=== PATIENT | male | born 1955 | race American Indian/Alaskan Native ===

== ENCOUNTER 2017-01-14 12:57 | Observation (INO) | payer BC, OTHER ==
[2017-01-14 13:10] VITALS: BMI 22.8
[2017-01-14] MEDS ORDERED: EnalaprilAT 1.25 mg/ml Inj IVP STA (13:41)
--- NOTE | 2017-01-14 13:46 | ED PDOC ---
Arrival/HPI - General Chief Complaint: High Blood Pressure Time Seen by Provider: 01/14/17 13:34 Historian: Patient, Spouse - History of Present Illness Time/Duration: Prior to Arrival Symptom Onset: Sudden Symptom Course: Unchanged Severity Level: Severe Activities at Onset: Rest Associated Symptoms (Text): 01/14/17 13:43 Patient was seen this morning at clinic by Dr. Hu and sent to the emergency department for evaluation and treatment and admission by the hospitalist. His blood pressure was 250/140. He was treated with bisystolic 10 mg. He denies chest pain palpitations or dyspnea. No headache dizziness or lightheadedness. No abdominal pain nausea or vomiting. He has stopped all of his diabetic and hypertensive medications. Past Medical History - Cardiac Hx Hypertension: Yes - Endocrine/Metabolic Hx Diabetes Mellitus Type 2: Yes - Psychiatric Hx Substance Use: No Family/Social History - Physician Review Nursing Documentation Reviewed: Yes Family/Social History: Unknown Family HX Smoking Status: Never Smoked Hx Alcohol Use: Yes Frequency of alcohol use: Socially Hx Substance Use: No Allergies/Home Meds Allergies/Adverse Reactions: Allergies No Known Allergies Allergy (Verified 01/14/17 13:10) Home Medications: Home Meds Medication Instructions Recorded Confirmed Amlodipine Bes/Olmesartan Med 1 tab PO DAILY 06/13/15 01/14/17 [Brittny 10 mg-40 mg] SITagliptin [Januvia] 25 mg PO BID 01/14/17 01/14/17 Review of Systems - Physician Review All systems were reviewed & negative as marked: Yes - Review of Systems Constitutional: Normal Respiratory: Normal Cardiovascular: Normal Gastrointestinal: Normal Genitourinary Male: Normal Skin: Normal Neurological: Normal Physical Exam Vital Signs Temp Pulse Resp BP Pulse Ox 01/14/17 14:21 197/114 H 01/14/17 13:05 99.1 F 94 H 18 213/100 H 98 Temperature: Afebrile Blood Pressure: Hypertensive Pulse: Regular Respiratory Rate: Normal Appearance: Positive for: Well-Appearing, Non-Toxic, Comfortable Pain Distress: None Mental Status: Positive for: Alert and Oriented X 3 - Systems Exam Head: Present: Atraumatic, Normocephalic Pupils: Present: PERRL Extroacular Muscles: Present: EOMI Conjunctiva: Present: Normal Mouth: Present: Moist Mucous Membranes Pharnyx: No: ERYTHEMA, EXUDATE, TONSILS ENLARGED Neck: Present: Normal Range of Motion Respiratory/Chest: Present: Clear to Auscultation, Good Air Exchange. No: Respiratory Distress, Accessory Muscle Use Cardiovascular: Present: Regular Rate and Rhythm, Normal S1, S2. No: Murmurs Abdomen: Present: Normal Bowel Sounds. No: Tenderness, Distention, Peritoneal Signs, Rebound, Guarding Upper Extremity: Present: Normal Inspection. No: Cyanosis, Edema Lower Extremity: Present: Normal Inspection. No: Edema Neurological: Present: GCS=15, CN II-XII Intact, Speech Normal, Motor Func Grossly Intact Skin: Present: Warm, Dry, Normal Color. No: Rashes Psychiatric: Present: Alert, Oriented x 3, Normal Insight, Normal Concentration Medical Decision Making ED Course and Treatment: 01/14/17 15:12 EKG shows normal sinus rhythm rate approximately [address] changes. There are nonspecific T-wave changes and no old available for comparison - Lab Interpretations Lab Results: 01/14/17 14:05 01/14/17 14:05 Lab Results 01/14/17 14:05: Sodium 140, Potassium 4.3, Chloride 103, Carbon Dioxide 29, Anion Gap 12, BUN 23 H, Creatinine 1.5 H, Est GFR ( Amer) 57, Est GFR ( Non-Af Amer) 47, Random Glucose 117 H, Calcium 9.5, Total Bilirubin 0.9, AST 28 , ALT 32, Alkaline Phosphatase 48, Lactate Dehydrogenase 481, Total Creatine Kinase 231 H, CK-MB (CK-2) 3.0, CK-MB (CK-2) % Cancelled, Troponin I < 0.01, NT- Pro-B Natriuret Pep 463 H, Total Protein 6.8, Albumin 3.7, Globulin 3.1, Albumin /Globulin Ratio 1.2 01/14/17 14:05: PT 10.0, INR 0.93, APTT 22.6 L 01/14/17 14:05: WBC 6.1, RBC 4.18, Hgb 12.2 L, Hct 35.8 L, MCV 85.6, MCH 29.2, MCHC 34.1, RDW 13.3, Plt Count 138, MPV 10.2, Gran % 72.1 H, Lymph % (Auto) 21.4 L, [place] % (Auto) 4.8, Eos % (Auto) 1.5, Baso % (Auto) 0.2, Gran # 4.38, Lymph # 1.3, [place] # 0.3, Eos # 0.1, Baso # 0.01 - RAD Interpretation Radiology Orders: 01/14/17 13:40 CHEST PORTABLE [RAD] Stat Chest 1 view shows no infiltrate effusion or cardiomegaly Radiotelegrapher: ED Physician - Medication Orders Current Medication Orders: Discontinued Medications Enalaprilat (Vasotec Iv) 2.5 mg IVP STAT STA Stop: 01/14/17 13:42 Last Admin: 01/14/17 14:21 Dose: 2.5 mg Disposition/Present on Arrival - Present on Arrival Any Indicators Present on Arrival: No History of DVT/PE: No History of Uncontrolled Diabetes: No Urinary Catheter: No History of Decub. Ulcer: No History Surgical Site Infection Following: None - Disposition Have Diagnosis and Disposition been Completed?: Yes Diagnosis: Hypertension Disposition: HOSPITALIZED Disposition Time: 15:16 Patient Plan: Observation, Telemetry Condition: IMPROVED Referrals: Moe Montiel MD [Primary Care Provider] - Follow up with primary
--- NOTE | 2017-01-14 14:06 | RAD ---
HISTORY: htn COMPARISON: No prior. FINDINGS: LUNGS: No active pulmonary disease. PLEURA: No significant pleural effusion identified, no pneumothorax apparent. CARDIOVASCULAR: Normal. OSSEOUS STRUCTURES: No significant abnormalities. VISUALIZED UPPER ABDOMEN: Normal. OTHER FINDINGS: None. IMPRESSION: No active disease.
[2017-01-14 14:17] LABS: ADD MANUAL DIFF? NO
[2017-01-14 14:22] LABS: BASO # 0.01 K/mm3 (0.0-2.0); BASO % 0.2 % (0.0-3.0); EOS # 0.1 (0.0-0.7); EOS % 1.5 % (1.5-5.0); GRAN # 4.38 (1.4-6.5); GRAN % 72.1 % (50.0-68.0); HEMATOCRIT 35.8 % (42.0-52.0); LYMPH # 1.3 (1.2-3.4); LYMPH % 21.4 % (22.0-35.0); MEAN CELL VOLUME 85.6 fL (80.0-105.0); MEAN CORPUSCULAR HEMOGLOBIN 29.2 pg (25.0-35.0); MEAN CORPUSCULAR HGB CONC 34.1 g/dl (31.0-37.0); MEAN PLATELET VOLUME 10.2 fl (7.0-11.0); MONO # 0.3 (0.1-0.6); MONO % 4.8 % (1.0-6.0); PLATELET COUNT 138 10^3/uL (120.0-450.0); RED CELL DISTRIBUTION WIDTH 13.3 % (11.5-14.5); WHITE BLOOD COUNT 6.1 10^3/ul (4.5-11.0)
[2017-01-14 14:32] LABS: ALB/GLOB RATIO 1.2 (1.1-1.8); ALKALINE PHOSPHATASE 48 U/L (38-133); ALT/SGPT 32 U/L (7-56); AST/SGOT 28 U/L (15-59); BILIRUBIN,TOTAL 0.9 mg/dL (0.2-1.3); BLOOD UREA NITROGEN 23 mg/dL (7-21); CALCIUM 9.5 mg/dL (8.4-10.5); CARBON DIOXIDE 29 mmol/L (21-33); CHLORIDE 103 mmol/L (98-107); GFR AFRICAN-AMERICAN 57; GLUCOSE,RANDOM 117 mg/dL (70-110); INR 0.93 (0.93-1.08); PARTIAL THROMBOPLASTIN TIME 22.6 Seconds (23.7-30.8); POTASSIUM 4.3 mmol/L (3.6-5.0); SODIUM 140 mmol/L (132-148); TOTAL PROTEIN 6.8 g/dL (5.8-8.3)
[2017-01-14 14:44] LABS: TROPONIN I < 0.01 ng/mL
--- NOTE | 2017-01-14 16:03 | CP.PCM.HP ---
Addendum entered and electronically signed by Rohini Olson DO 01/14/17 16:56: Plan: Hypertensive urgency: Systolic BP with maximum reduction to 170-160 mm/ hg before end of day. Original Note: <Rohini Olson - Last Filed: 01/14/17 16:52> History of Present Illness - History of Present Illness History of Present Illness: 61 yo M w/PMHx of HTN and DM, presents to ED from first a PMD visit with reported systolic blood pressure over 200. Sent to museum technician's office Dr. Hu and BP was reported to be 250/140, and bisystolic 10 mg once was admnistered and then pt sent to ED. Pt denies BLACKMAN, numbness, N/V, chest pain, abdominal pain, and urinary changes. Reports not taking home medications for HTN and DM for about a month. PMHx: HTN, DM PSxHx: Denies Allergies: NKDA Medications: Amlodipine/olmesartan [10mg-40mg] one tab qd, and sitagliptin 25 mg PO BID Social: denies smoking, reports about 1 serving of vodka per day, and denies illicit drugs. Present on Admission - Present on Admission Any Indicators Present on Admission: No Review of Systems - Review of Systems All systems: reviewed and no additional remarkable complaints except - Constitutional Constitutional: absent: Fever, Headache - Cardiovascular Cardiovascular: absent: Chest Pain, Dyspnea - Respiratory Respiratory: absent: Cough, Dyspnea - Gastrointestinal Gastrointestinal: absent: Abdominal Pain, Diarrhea - Musculoskeletal Musculoskeletal: absent: Numbness, Tingling Past Patient History - Past Social History Smoking Status: Never Smoked - CARDIAC Hx Hypertension: Yes - ENDOCRINE/METABOLIC Hx Diabetes Mellitus Type 2: Yes - PSYCHIATRIC Hx Substance Use: No - SURGICAL HISTORY Hx Surgeries: No Meds Allergies/Adverse Reactions: Allergies Allergy/AdvReac Type Severity Reaction Status Date / Time No Known Allergies Allergy Verified 01/14/17 13:10 Physical Exam - Constitutional Appears: Non-toxic, No Acute Distress - Head Exam Head Exam: ATRAUMATIC, NORMOCEPHALIC - Eye Exam Eye Exam: EOMI, Normal appearance - Respiratory Exam Respiratory Exam: Clear to Auscultation Bilateral, NORMAL BREATHING PATTERN - Cardiovascular Exam Cardiovascular Exam: +S1, +S2. absent: Bradycardia - GI/Abdominal Exam GI & Abdominal Exam: Soft. absent: Tenderness - Exam External exam: absent: Ecchymosis, Erythema - Extremities Exam Extremities exam: Positive for: normal capillary refill, pedal pulses present. Negative for: pedal edema - Neurological Exam Neurological exam: Alert, Oriented x3 - Psychiatric Exam Psychiatric exam: Normal Affect, Normal Mood - Skin Skin Exam: Intact, Normal Color Results - Vital Signs Recent Vital Signs: Last Vital Signs Temp 99.1 F 01/14/17 13:05 Pulse 60 01/14/17 16:01 Resp 18 01/14/17 15:00 BP 182/97 H 01/14/17 16:01 Pulse Ox 98 01/14/17 15:00 - Labs Result Diagrams: 01/14/17 14:05 01/14/17 14:05 Labs: Laboratory Results - last 24 hr 01/14/17 01/14/17 01/14/17 14:05 14:05 14:05 WBC 6.1 RBC 4.18 Hgb 12.2 L Hct 35.8 L MCV 85.6 MCH 29.2 MCHC 34.1 RDW 13.3 Plt Count 138 MPV 10.2 Gran % 72.1 H Lymph % (Auto) 21.4 L [place] % (Auto) 4.8 Eos % (Auto) 1.5 Baso % (Auto) 0.2 Gran # 4.38 Lymph # 1.3 [place] # 0.3 Eos # 0.1 Baso # 0.01 PT 10.0 INR 0.93 APTT 22.6 L Sodium 140 Potassium 4.3 Chloride 103 Carbon Dioxide 29 Anion Gap 12 BUN 23 H Creatinine 1.5 H Est GFR ( Amer) 57 Est GFR (Non-Af Amer) 47 Random Glucose 117 H Calcium 9.5 Total Bilirubin 0.9 AST 28 ALT 32 Alkaline Phosphatase 48 Lactate Dehydrogenase 481 Total Creatine Kinase 231 H CK-MB (CK-2) 3.0 CK-MB (CK-2) % Cancelled Troponin I < 0.01 NT-Pro-B Natriuret Pep 463 H Total Protein 6.8 Albumin 3.7 Globulin 3.1 Albumin/Globulin Ratio 1.2 Assessment & Plan - Assessment and Plan (Free Text) Plan: 61 yo M w/PMHx of HTN and DM, presents to ED sent from first a PMD and then museum technician visit today with reported blood pressure 250/140, bisystolic 10 given. Initial BP in ED 213/110, vasotec given in ED. Pt reports being Asymptomatic. Initial troponin negative and no acute findings on CXR, and EKG NSR 70 w/nonspecific ST/T changes. Hypertensive urgency: hydralazine PRN if systolic greater than 160 cozaar 100 norvasc 10 Cardiology consult appreciated ECHO ordered DM: ISS, accucheck ACHS Home januvia 25 mg PO BID Hemoglobin A1c ordered PPx: SCD, protonix <Polina NGUYEN,Delonte - Last Filed: 01/14/17 17:15> Results - Vital Signs Recent Vital Signs: Last Vital Signs Temp 99.1 F 01/14/17 13:05 Pulse 60 01/14/17 16:01 Resp 18 01/14/17 15:00 BP 176/95 H 01/14/17 16:56 Pulse Ox 98 01/14/17 15:00 - Labs Result Diagrams: 01/14/17 14:05 01/14/17 14:05 Labs: Laboratory Results - last 24 hr 01/14/17 16:16 POC Glucose (mg/dL) 115 H Attending/Attestation - Attestation I have personally seen and examined this patient.: Yes I have fully participated in the care of the patient.: Yes I have reviewed all pertinent clinical information: Yes Notes (Text): 01/14/17 17:08 Patient was seen and examined with medical records secretary .Agreed with resident assessment and plan. 61 Yrs old male with PMH of HTN,NIDDM , mon compliance with medications, last time his blood pressure medication one month back was sent to ER by PMD office as he was found to have systolic BP more than 200.He is asymptometic.His blood pressure has come down from 213/100 TO 179/95.We will resume his home amlodipine and ARB.We will add Metoprolol 25 mg PO BID.We will monitor patient blood pressure and adjust medications. We will also check UA, urinary albumin and creatininin.. Issue of compliance with medication was discussed in detail . Management plan was discussed in detail with patient Education was provided. 01/14/17 17:10 01/14/17 17:10
[2017-01-14] MEDS: Insulin Reg-LOW-Coverage SC SCH ×2 (16:17→21:31)
[2017-01-14 17:28] LABS: URINE BILIRUBIN NEGATIVE (NEGATIVE); URINE BLOOD TRACE-LYSED (NEGATIVE); URINE GLUCOSE (UA) NEGATIVE (NEGATIVE); URINE KETONE NEGATIVE (NEGATIVE); URINE LEUKOCYTE ESTERASE NEGATIVE Leu/uL (NEGATIVE); URINE PROTEIN 100 mg/dL (<30 mg/dL); URINE UROBILINOGEN 0.2 E.U./dL (<1 E.U./dL)
[2017-01-14 17:34] LABS: URINE APPEARANCE CLEAR (CLEAR); URINE COLOR YELLOW (YELLOW)
[2017-01-14 18:05] LABS: URINE BACTERIA NEG (NEG); URINE EPITHELIAL CELLS 0 - 2 /hpf (0-5); URINE RBC 0 - 2 /hpf (0-2); URINE WBC NEGATIVE /hpf (0-6)
[2017-01-14] MEDS ORDERED: Pneumococcal 23-Valent Vaccine IM ONE (20:33)
--- NOTE | 2017-01-14 22:22 | CARD ---
APPROVED REPORT EKG Measurement Heart [id number] <Conclusion> Normal sinus rhythm with sinus arrhythmia Nonspecific T wave abnormality Abnormal ECG
[2017-01-15] MEDS ORDERED: Pantoprazole 40 mg EC Tab PO SCH (06:30)
[2017-01-15 06:32] VITALS: RESP 18; O2SAT 99
[2017-01-15 08:07] LABS: ADD MANUAL DIFF? NO
[2017-01-15 08:15] LABS: BASO # 0.01 K/mm3 (0.0-2.0); BASO % 0.2 % (0.0-3.0); EOS # 0.1 (0.0-0.7); EOS % 2.3 % (1.5-5.0); GRAN # 4.08 (1.4-6.5); GRAN % 65.5 % (50.0-68.0); LYMPH # 1.6 (1.2-3.4); LYMPH % 25.1 % (22.0-35.0); MEAN CELL VOLUME 85.1 fL (80.0-105.0); MEAN CORPUSCULAR HEMOGLOBIN 28.4 pg (25.0-35.0); MEAN CORPUSCULAR HGB CONC 33.3 g/dl (31.0-37.0); MEAN PLATELET VOLUME 10.2 fl (7.0-11.0); MONO # 0.4 (0.1-0.6); MONO % 6.9 % (1.0-6.0); PLATELET COUNT 127 10^3/uL (120.0-450.0); RED CELL DISTRIBUTION WIDTH 13.2 % (11.5-14.5); WHITE BLOOD COUNT 6.2 10^3/ul (4.5-11.0)
[2017-01-15 08:26] LABS: ALB/GLOB RATIO 1.1 (1.1-1.8); BILIRUBIN,TOTAL 0.6 mg/dL (0.2-1.3); CALCIUM 8.9 mg/dL (8.4-10.5); POTASSIUM 4.1 mmol/L (3.6-5.0)
[2017-01-15] MEDS: Insulin Reg-LOW-Coverage SC SCH ×2 (09:11→12:30)
[2017-01-15] MEDS ORDERED: Sodium Chloride 0.45% 1,000 ML IV SCH (10:45)
--- NOTE | 2017-01-15 11:44 | CON ---
DATE: 01/15/2017 HISTORY OF PRESENT ILLNESS: The patient was admitted for accelerated hypertension due to noncomplian ce to medications. He stopped his medications for unknown reason. He basically states he felt well. The patient's cardiac risk factors include CAD, diabetes mellitus, hypertension and hypercholesterole naif. The patient is currently asymptomatic. SOCIAL HISTORY: Negative smoker. REVIEW OF SYSTEMS: The patient's 14-point review of systems was reviewed in detail. No cardiac symp tomatology is noted. PHYSICAL EXAMINATION: VITAL SIGNS: Blood pressure was initially 240/120. After being on medications, the pressure is now 136/80, heart rate is in the 60s, normal sinus rhythm. NECK: Negative JVD. LUNGS: Without rales. HEART: Reveals S1, S2. EXTREMITIES: Without edema. EKG is unchanged. LABORATORY DATA: Hemoglobin is 11. Chemistries: Glucose is 121 with a BUN and creatinine of 29 and 1.8. IMPRESSION: 1. Accelerated/malignant hypertension which is now controlled now that the patient is on medications . 2. Diabetes mellitus. 3. Renal insufficiency. 4. Coronary artery disease. PLAN: Given these findings, I have discussed with the patient about the need to maintain blood press ure medications. Followup and instructions have been given to the patient. From a cardiac perspecti ve, the patient can be discharged. Manny Hu MD cc: [id number] TT: 01/15/2017 11:44:22 Confirmation # [id number] Dictation # [id number] francisco javier
[2017-01-15 12:21] VITALS: BP 133/73; PULSE 97; TEMP 98
--- NOTE | 2017-01-15 13:09 | CP.PCM.DIS ---
<Rohini Olson - Last Filed: 01/15/17 15:14> Provider - Provider Date of Admission: 01/14/17 15:15 Attending physician: Delonte Fish MD Primary care physician: Moe Montiel MD Consults: Dr. Hu Time Spent in preparation of Discharge (in minutes): 25 Hospital Course - Lab Results Lab Results: Most Recent Lab Values WBC 6.2 10^3/ul (4.5-11.0) 01/15/17 07:45 RBC 3.88 10^6/uL (3.5-6.1) 01/15/17 07:45 Hgb 11.0 gm/dL (14.0-18.0) L 01/15/17 07:45 Hct 33.0 % (42.0-52.0) L 01/15/17 07:45 MCV 85.1 fL (80.0-105.0) 01/15/17 07:45 MCH 28.4 pg (25.0-35.0) 01/15/17 07:45 MCHC 33.3 g/dl (31.0-37.0) 01/15/17 07:45 RDW 13.2 % (11.5-14.5) 01/15/17 07:45 Plt Count 127 10^3/uL (120.0-450.0) 01/15/17 07:45 MPV 10.2 fl (7.0-11.0) 01/15/17 07:45 Gran % 65.5 % (50.0-68.0) 01/15/17 07:45 Lymph % (Auto) 25.1 % (22.0-35.0) 01/15/17 07:45 [place] % (Auto) 6.9 % (1.0-6.0) H 01/15/17 07:45 Eos % (Auto) 2.3 % (1.5-5.0) 01/15/17 07:45 Baso % (Auto) 0.2 % (0.0-3.0) 01/15/17 07:45 Gran # 4.08 (1.4-6.5) 01/15/17 07:45 Lymph # 1.6 (1.2-3.4) 01/15/17 07:45 [place] # 0.4 (0.1-0.6) 01/15/17 07:45 Eos # 0.1 (0.0-0.7) 01/15/17 07:45 Baso # 0.01 K/mm3 (0.0-2.0) 01/15/17 07:45 PT 10.0 Seconds (9.9-11.8) 01/14/17 14:05 INR 0.93 (0.93-1.08) 01/14/17 14:05 APTT 22.6 Seconds (23.7-30.8) L 01/14/17 14:05 Sodium 138 mmol/L (132-148) 01/15/17 07:45 Potassium 4.1 mmol/L (3.6-5.0) 01/15/17 07:45 Chloride 102 mmol/L (95-110) 01/15/17 07:45 Carbon Dioxide 28 mmol/L (21-33) 01/15/17 07:45 Anion Gap 12 (10-20) 01/15/17 07:45 BUN 29 mg/dL (7-21) H 01/15/17 07:45 Creatinine 1.8 mg/dL (0.5-1.4) H 01/15/17 07:45 Est GFR ( Amer) 46 01/15/17 07:45 Est GFR (Non-Af Amer) 38 01/15/17 07:45 POC Glucose (mg/dL) 172 mg/dL (65-110) H 01/15/17 11:03 Random Glucose 121 mg/dL (70-110) H 01/15/17 07:45 Hemoglobin A1c 6.8 % (4.2-6.5) H 01/15/17 07:45 Calcium 8.9 mg/dL (8.4-10.5) 01/15/17 07:45 Total Bilirubin 0.6 mg/dL (0.2-1.3) 01/15/17 07:45 AST 27 U/L (15-59) 01/15/17 07:45 ALT 37 U/L (7-56) 01/15/17 07:45 Alkaline Phosphatase 42 U/L (38-133) 01/15/17 07:45 Lactate Dehydrogenase 481 U/L (333-699) 01/14/17 14:05 Total Creatine Kinase 231 U/L (35-230) H 01/14/17 14:05 CK-MB (CK-2) 3.0 ng/mL (0.0-3.6) 01/14/17 14:05 CK-MB (CK-2) % Cancelled 01/14/17 14:05 Troponin I < 0.01 ng/mL 01/14/17 14:05 NT-Pro-B Natriuret Pep 463 pg/mL (0-450) H 01/14/17 14:05 Total Protein 6.0 g/dL (5.8-8.3) 01/15/17 07:45 Albumin 3.2 g/dL (3.0-4.8) 01/15/17 07:45 Globulin 2.8 gm/dL 01/15/17 07:45 Albumin/Globulin Ratio 1.1 (1.1-1.8) 01/15/17 07:45 Urine Color Yellow (YELLOW) 01/14/17 16:55 Urine Appearance Clear (CLEAR) 01/14/17 16:55 Urine pH 6.0 (4.7-8.0) 01/14/17 16:55 Ur Specific [place] 1.015 (1.005-1.035) 01/14/17 16:55 Urine Protein 100 mg/dL (<30 mg/dL) H 01/14/17 16:55 Urine Glucose (UA) Negative mg/dL (NEGATIVE) 01/14/17 16:55 Urine Ketones Negative mg/dL (NEGATIVE) 01/14/17 16:55 Urine Blood Trace-lysed (NEGATIVE) H 01/14/17 16:55 Urine Nitrate Negative (NEGATIVE) 01/14/17 16:55 Urine Bilirubin Negative (NEGATIVE) 01/14/17 16:55 Urine Urobilinogen 0.2 E.U./dL (<1 E.U./dL) 01/14/17 16:55 Ur Leukocyte Esterase Negative Tian/uL (NEGATIVE) 01/14/17 16:55 Urine RBC 0 - 2 /hpf (0-2) 01/14/17 16:55 Urine WBC Negative /hpf (0-6) 01/14/17 16:55 Ur Epithelial Cells 0 - 2 /hpf (0-5) 01/14/17 16:55 Urine Bacteria Neg (NEG) 01/14/17 16:55 Ur Random Creatinine 129 mg/dL 01/14/17 16:55 - Hospital Course Hospital Course: 61 yo M w/PMHx of HTN and DM, presents to ED sent from first a PMD and then legal office administrator visit on 01/14/2017 with reported blood pressure 250/140, bisystolic 10 given. Initial BP in ED 213/110, vasotec given in ED. Pt reports being asymptomatic. Reports not taking HTN or DM medications for one month. Initial troponin negative and no acute findings on CXR, and EKG NSR 70 w /nonspecific ST/T changes. Transferred to telemetry for hypertension. Resumed home medications for HTN and DM and added on sliding scale insulin and hydralazine PRN and metoprolol 25 BID. ECHO 01/15/2017: EF 67%,"borderline concentric left ventricular hypertrophy, transmitral doppler flow pattern is grade I- abnormal relaxation pattern. Mitral regurgitation is mild, moderate tricuspid regurgitation, moderate pulmonary hypertension." Compliance with medications was discussed in detail and pt d/c in improved condition with following instructions: You are discharged home. Please follow-up with your primary doctor in 7 days for follow-up care and repeat BUN/Cr testing. Please resume your home medications of Brittny one tab by mouth daily. metoprolol tartrate 25mg by mouth twice daily and januvia 2g mg by mouth twice daily. New paper prescriptions for two weeks of said medications are provided. Please return to emergency department for worsening of symptoms. Discharge Exam - Head Exam Head Exam: ATRAUMATIC, NORMOCEPHALIC - Eye Exam Eye Exam: EOMI, Normal appearance Pupil Exam: NORMAL ACCOMODATION, PERRL - Respiratory Exam Respiratory Exam: NORMAL BREATHING PATTERN, UNREMARKABLE - Cardiovascular Exam Cardiovascular Exam: +S1, +S2. absent: Bradycardia - GI/Abdominal Exam GI & Abdominal Exam: Soft. absent: Tenderness - Exam External exam: absent: Ecchymosis, Erythema - Neurological Exam Neurological exam: Alert, Oriented x3 - Skin Skin Exam: Normal Color, Warm Discharge Plan - Discharge Medications Prescriptions: Amlodipine Bes/Olmesartan Med [Brittny 10-40 mg Tablet] 1 tab PO DAILY #14 Metoprolol Tartrate [Lopressor] 25 mg PO Q12 #28 tab SITagliptin [Januvia] 25 mg PO BID #28 - Follow Up Plan Condition: IMPROVED Disposition: HOME/ ROUTINE Instructions: Hypertension (DC), Hypertension (GEN) Additional Instructions: You are discharged home. Please follow-up with your primary doctor in 7 days for follow-up care and repeat BUN/Cr testing. Please resume your home medications of Brittny one tab by mouth daily, metoprolol tartrate 25mg by mouth twice daily and januvia 2g mg by mouth twice daily. New paper prescriptions for two weeks of said medications are provided. Please return to emergency department for worsening of symptoms. Referrals: Moe Montiel MD [Primary Care Provider] - <Delonte Fish MD - Last Filed: 01/15/17 15:38> Provider - Provider Date of Admission: 01/14/17 15:15 Attending physician: Delonte Fish MD Primary care physician: Moe Montiel MD Hospital Course - Lab Results Lab Results: Most Recent Lab Values WBC 6.2 10^3/ul (4.5-11.0) 01/15/17 07:45 RBC 3.88 10^6/uL (3.5-6.1) 01/15/17 07:45 Hgb 11.0 gm/dL (14.0-18.0) L 01/15/17 07:45 Hct 33.0 % (42.0-52.0) L 01/15/17 07:45 MCV 85.1 fL (80.0-105.0) 01/15/17 07:45 MCH 28.4 pg (25.0-35.0) 01/15/17 07:45 MCHC 33.3 g/dl (31.0-37.0) 01/15/17 07:45 RDW 13.2 % (11.5-14.5) 01/15/17 07:45 Plt Count 127 10^3/uL (120.0-450.0) 01/15/17 07:45 MPV 10.2 fl (7.0-11.0) 01/15/17 07:45 Gran % 65.5 % (50.0-68.0) 01/15/17 07:45 Lymph % (Auto) 25.1 % (22.0-35.0) 01/15/17 07:45 [place] % (Auto) 6.9 % (1.0-6.0) H 01/15/17 07:45 Eos % (Auto) 2.3 % (1.5-5.0) 01/15/17 07:45 Baso % (Auto) 0.2 % (0.0-3.0) 01/15/17 07:45 Gran # 4.08 (1.4-6.5) 01/15/17 07:45 Lymph # 1.6 (1.2-3.4) 01/15/17 07:45 [place]att # 0.4 (0.1-0.6) 01/15/17 07:45 Eos # 0.1 (0.0-0.7) 01/15/17 07:45 Baso # 0.01 K/mm3 (0.0-2.0) 01/15/17 07:45 PT 10.0 Seconds (9.9-11.8) 01/14/17 14:05 INR 0.93 (0.93-1.08) 01/14/17 14:05 APTT 22.6 Seconds (23.7-30.8) L 01/14/17 14:05 Sodium 138 mmol/L (132-148) 01/15/17 07:45 Potassium 4.1 mmol/L (3.6-5.0) 01/15/17 07:45 Chloride 102 mmol/L (95-110) 01/15/17 07:45 Carbon Dioxide 28 mmol/L (21-33) 01/15/17 07:45 Anion Gap 12 (10-20) 01/15/17 07:45 BUN 29 mg/dL (7-21) H 01/15/17 07:45 Creatinine 1.8 mg/dL (0.5-1.4) H 01/15/17 07:45 Est GFR ( Amer) 46 01/15/17 07:45 Est GFR (Non-Af Amer) 38 01/15/17 07:45 POC Glucose (mg/dL) 172 mg/dL (65-110) H 01/15/17 11:03 Random Glucose 121 mg/dL (70-110) H 01/15/17 07:45 Hemoglobin A1c 6.8 % (4.2-6.5) H 01/15/17 07:45 Calcium 8.9 mg/dL (8.4-10.5) 01/15/17 07:45 Total Bilirubin 0.6 mg/dL (0.2-1.3) 01/15/17 07:45 AST 27 U/L (15-59) 01/15/17 07:45 ALT 37 U/L (7-56) 01/15/17 07:45 Alkaline Phosphatase 42 U/L (38-133) 01/15/17 07:45 Lactate Dehydrogenase 481 U/L (333-699) 01/14/17 14:05 Total Creatine Kinase 231 U/L (35-230) H 01/14/17 14:05 CK-MB (CK-2) 3.0 ng/mL (0.0-3.6) 01/14/17 14:05 CK-MB (CK-2) % Cancelled 01/14/17 14:05 Troponin I < 0.01 ng/mL 01/14/17 14:05 NT-Pro-B Natriuret Pep 463 pg/mL (0-450) H 01/14/17 14:05 Total Protein 6.0 g/dL (5.8-8.3) 01/15/17 07:45 Albumin 3.2 g/dL (3.0-4.8) 01/15/17 07:45 Globulin 2.8 gm/dL 01/15/17 07:45 Albumin/Globulin Ratio 1.1 (1.1-1.8) 01/15/17 07:45 Urine Color Yellow (YELLOW) 01/14/17 16:55 Urine Appearance Clear (CLEAR) 01/14/17 16:55 Urine pH 6.0 (4.7-8.0) 01/14/17 16:55 Ur Specific [place] 1.015 (1.005-1.035) 01/14/17 16:55 Urine Protein 100 mg/dL (<30 mg/dL) H 01/14/17 16:55 Urine Glucose (UA) Negative mg/dL (NEGATIVE) 01/14/17 16:55 Urine Ketones Negative mg/dL (NEGATIVE) 01/14/17 16:55 Urine Blood Trace-lysed (NEGATIVE) H 01/14/17 16:55 Urine Nitrate Negative (NEGATIVE) 01/14/17 16:55 Urine Bilirubin Negative (NEGATIVE) 01/14/17 16:55 Urine Urobilinogen 0.2 E.U./dL (<1 E.U./dL) 01/14/17 16:55 Ur Leukocyte Esterase Negative Tian/uL (NEGATIVE) 01/14/17 16:55 Urine RBC 0 - 2 /hpf (0-2) 17 16:55 Urine WBC Negative /hpf (0-6) 01/14/17 16:55 Ur Epithelial Cells 0 - 2 /hpf (0-5) 01/14/17 16:55 Urine Bacteria Neg (NEG) 01/14/17 16:55 Ur Random Creatinine 129 mg/dL 01/14/17 16:55 Attending/Attestation - Attestation I have personally seen and examined this patient.: Yes I have fully participated in the care of the patient.: Yes I have reviewed all pertinent clinical information, including history, physical exam and plan: Yes Notes (Text): 01/15/17 15:34 Patient was seen and examined with medical office administrator .Agreed with resident assessment and plan. 61 Yrs old male with PMH of HTN,NIDDM , mon compliance with medications, last time his blood pressure medication one month back was sent to ER by PMD office as he was found to have systolic BP more than 200.He was asymptometic. His blood pressure is better controlled with current medication.He was evaluated by cardiology, no further work up is recommended. His creatinin has increased from 1.5 to 1.8.This is likely will get better as blood pressure is better controlled now.His renal functions need to be checked with one week.If no improvement in renal function, will need to see Technical Staff Engineer as out patient, Patient is feeling better and wants to be discharged. Issue of compliance with medication was discussed in detail . Management plan was discussed in detail with patient Education was provided.
--- NOTE | 2017-01-15 13:26 | CARD ---
APPROVED REPORT EXAM: Two-dimensional and M-mode echocardiogram with Doppler and color Doppler. INDICATION Hypertension/HCVD 2D DIMENSIONS Left Atrium (2D)3.2 (1.6-4.0cm)IVSd1.2 (0.7-1.1cm) LVDd4.1 (3.9-5.9cm)PWd1.4 (0.7-1.1cm) LVDs2.6 (2.5-4.0cm)FS (%) 37.3 % LVEF (%)67.7 (>50%) M-Mode DIMENSIONS Aortic Root2.60 (2.2-3.7cm)Aortic Cusp Exc.0.90 (1.5-2.0cm) Aortic Valve AoV Peak Tpnhlbua013.0cm/Reynaldo Peak GR.6mmHg Mitral Valve MV E Upofskmy26.4cm/sMV A Xhvdfrqb53.1cm/sE/A ratio0.6 TDI E/Lateral E'0.0E/Medial E'0.0 Tricuspid Valve TR Peak Lwupamxz454sz/sRAP [id number] Peak Gr.43mmHg [id number] LEFT VENTRICLE The left ventricle is normal size. There is borderline concentric left ventricular hypertrophy. The left ventricular function is normal. The left ventricular ejection fraction is within the normal range. There is normal LV segmental wall motion. Transmitral Doppler flow pattern is Grade I-abnormal relaxation pattern. RIGHT VENTRICLE The right ventricle is normal size. There is normal right ventricular wall thickness. The right ventricular systolic function is normal. ATRIA The left atrium size is normal. The right atrium size is normal. AORTIC VALVE The aortic valve is mildly thickened. No aortic regurgitation is present. MITRAL VALVE The mitral valve is mildly thickened. Mitral regurgitation is mild. TRICUSPID VALVE There is moderate tricuspid regurgitation. There is moderate pulmonary hypertension. GREAT VESSELS The aortic root is normal in size. The IVC is normal in size and collapses >50% with inspiration. PERICARDIAL EFFUSION There is no pericardial effusion. <Conclusion> The left ventricle is normal size. There is borderline concentric left ventricular hypertrophy. The left ventricular function is normal. The left ventricular ejection fraction is within the normal range. There is normal LV segmental wall motion. Transmitral Doppler flow pattern is Grade I-abnormal relaxation pattern. Mitral regurgitation is mild. There is moderate tricuspid regurgitation. There is moderate pulmonary hypertension.
== END 2017-01-15 18:46 | disposition home or self-care (01) ==
LOC: ED 12:57 → ERH 15:15 → 2RNO 18:33
PROVIDERS: ADMIT Internal Medicine; ATTEND Internal Medicine
DX: I16.0 Hypertensive urgency (principal); Z91.14 Patient's other noncompliance with medication regimen; E11.9 Type 2 diabetes mellitus without complications; I10 Essential (primary) hypertension; I25.10 Atherosclerotic heart disease of native coronary artery without angina pectoris; N28.9 Disorder of kidney and ureter, unspecified; I08.1 Rheumatic disorders of both mitral and tricuspid valves; I27.2 Other secondary pulmonary hypertension; Z79.84 Long term (current) use of oral hypoglycemic drugs
CPT/HCPCS: 36415; 71010; 80053; 81001; 82550; 82553; 82570; 82948; 83036; 83615; 83880; 84484; 85025; 85610; 85730; 93005; 93306; 96374; 99285; G0378; J7030